=== PATIENT | female | born 1955 | race Caucasian/White ===

== ENCOUNTER 2022-10-25 05:28 | Emergency (ER) | payer MEDICARE, MEDICAID, SELFPAY ==
[2022-10-25 05:31] VITALS: BP 158/86; PULSE 74; RESP 17; TEMP 36.6; O2SAT 95; BMI 31.9
--- NOTE | 2022-10-25 05:32 | XRR_ITS ---
PROCEDURE INFORMATION: Exam: XR Chest Exam date and time: 10/25/2022 5:36 AM Age: 66 years old Clinical indication: Dyspnea. Altered mental status. TECHNIQUE: Imaging protocol: Radiologic exam of the chest. Views: 1 view. COMPARISON: No relevant prior studies available. FINDINGS: Lungs: There is mild peribronchial wall thickening. No pulmonary consolidation. Pleural spaces: No pleural effusion. No pneumothorax. Heart/Mediastinum: The heart appears enlarged; this may be exaggerated by AP technique. No gross evidence of pneumomediastinum. Bones/joints: No gross fracture. XR/XR chest 1V portable [id number] IMPRESSION: 1. Mild peribronchial wall thickening; query viral infection/bronchitis, chronic bronchitis and/or asthma. 2. The heart appears enlarged; this may be exaggerated by AP technique.
--- NOTE | 2022-10-25 05:32 | CTR_ITS ---
PROCEDURE INFORMATION: Exam: CT Cervical Spine Without Contrast Exam date and time: 10/25/2022 6:22 AM Age: 66 years old Clinical indication: Injury or trauma; Blunt trauma; Prior surgery; Surgery type: Cervical fusion; Patient HX: From halfway for fall with AMS. Patient unresponsive. Unable to obtain further history. TECHNIQUE: Imaging protocol: Computed tomography of the cervical spine without contrast. Radiation optimization: All CT scans at this facility use at least one of these dose optimization techniques: automated exposure control; mA and/or kV adjustment per patient size (includes targeted exams where dose is matched to clinical indication); or iterative reconstruction. COMPARISON: CT head wo con* [id number] 10/25/2022 6:19 AM RADIATION DOSE METRICS: Total DLP (mGy-cm): 192.87 FINDINGS: Bones/joints: No acute fracture or malalignment. Postsurgical changes of prior ACDF with anterior plate and screw fixation spanning C5 through C7. Hardware appears intact. Uncovertebral spurring and facet hypertrophy contribute to moderate neural foraminal stenosis at C4-C5 on the left. Lungs: Lung apices are normal. Thyroid: There is a peripherally calcified right thyroid nodule measuring 1.5 cm. Soft tissues: Unremarkable. CT/CT cervical spin wo con* [id number] IMPRESSION: 1. No acute fracture or malalignment. 2. There is a peripherally calcified right thyroid nodule measuring 1.5 cm. Follow-up non-emergent thyroid ultrasound is recommended. COMMENTS: Consistent with the [employer]'s Incidental Findings Committee white paper (J Am Linh Radiol 2015): In patients aged 35 years and older with an incidental thyroid nodule equal to or greater than 1.[address], MRI or extrathyroidal US, further evaluation with dedicated thyroid US is recommended for patients with normal life expectancy and without comorbidities. For smaller nodules without suspicious features, no further evaluation or follow up is recommended.
--- NOTE | 2022-10-25 05:32 | CTR_ITS ---
PROCEDURE INFORMATION: Exam: CT Head Without Contrast Exam date and time: 10/25/2022 6:19 AM Age: 66 years old Clinical indication: Injury or trauma; Blunt trauma (contusions or hematomas); Altered mental status/memory loss; Confusion or disorientation; Patient HX: From half-way for fall with AMS. Patient unresponsive. Unable to obtain further history. TECHNIQUE: Imaging protocol: Computed tomography of the head without contrast. Radiation optimization: All CT scans at this facility use at least one of these dose optimization techniques: automated exposure control; mA and/or kV adjustment per patient size (includes targeted exams where dose is matched to clinical indication); or iterative reconstruction. COMPARISON: No relevant prior studies available. RADIATION DOSE METRICS: Total DLP (mGy-cm): 1097.48 FINDINGS: Brain: Patchy hypoattenuation in the periventricular and subcortical white matter, consistent with chronic small vessel ischemia. No CT evidence of acute ischemia. No acute hemorrhage. No mass effect. Cerebral ventricles: Global cerebral volume loss with ex vacuo dilatation of the ventricles. Paranasal sinuses: Visualized sinuses are unremarkable. No fluid levels. Mastoid air cells: Visualized mastoid air cells are well aerated. Bones/joints: Unremarkable. No acute fracture. Soft tissues: Unremarkable. CT/CT head wo con* [id number] IMPRESSION: No acute intracranial abnormality.
--- NOTE | 2022-10-25 05:38 | ED_ITS ---
Documented by User: Jason De La Cruz MD 10/25/22 05:41 HPI - General Adult General: Chief complaint: Altered Mental Status Stated complaint: FALL Time Seen by Provider: 10/25/22 05:29 Source: EMS Mode of arrival: EMS Limitations: altered mental status History of Present Illness: 66-year-old female is here for unresponsiveness per EMS correction and found her in the floor unsure if she had had a fall he states that she has not been eating or drinking has been saying that she just wants to patient is on the Alzheimer payan there. Patient here is opening her eyes but will not respond she is not answering any questions vitals are normal Review of Systems General: Reports: ROS unobtainable due to mental status PFSH ED PFSH: Medical History (Updated 10/25/22 @ 10:00 by Dax Melendrez DO) Diabetes Social History (Updated 10/25/22 @ 05:39 by Jason De La Cruz MD) Substance/Drug Use: never Physical Exam Const: COMMON NORMALS: negative for patient oriented x3 EXAM LIMITATIONS: altered mental status HENMT: COMMON NORMALS: normocephalic and atraumatic HEAD & SCALP: normocephalic and atraumatic Eye: COMMON NORMALS: Equal, round and reactive pupils present and conjunctivae normal CONJUNCTIVA: Yes conjunctivae normal PUPIL: Yes Equal, round and reactive pupils present Neck/C-Spine: COMMON NORMALS: full ROM and supple Chest: COMMONS NORMALS: normal inspection of the chest and normal palpation of entire chest wall Resp: COMMON NORMALS: normal respiratory effort and clear to auscultation bilaterally AUSCULTATION: clear to auscultation bilaterally Cardio: COMMON NORMALS: regular rate and regular rhythm RATE: regular rate RHYTHM: regular rhythm GI: COMMON NORMALS: Normal to inspection, nondistended, normoactive bowel sounds present, Soft to palpation and non-tender PALPATION: Yes Soft to palpation Extremity: COMMON NORMALS: normal to inspection Neuro: COMMON NORMALS: negative for patient oriented x3 OTHER: Patient would not respond to verbal stimuli but did respond to painful stimuli and moved her extremities Psych: COMMON NORMALS: negative for mental status grossly normal Skin: COMMON NORMALS: no rashes or lesions noted GENERAL SKIN EXAM: no rashes or lesions noted Course Vital Signs: Vital signs: Vital Signs Temperature 97.9 F 10/25/22 05:31 Pulse Rate 75 10/25/22 07:28 Respiratory Rate 16 10/25/22 07:28 Blood Pressure 145/71 10/25/22 07:28 Pulse Oximetry 100 10/25/22 07:28 Oxygen Delivery Me thod 10/25/22 06:15 MDM - General Adult Lab Data 10/25/22 05:41 10/25/22 05:41 Radiology Impressions Cervical Spine CT 10/25/22 05:32 IMPRESSION: 1. No acute fracture or malalignment. 2. There is a peripherally calcified right thyroid nodule measuring 1.5 cm. Follow-up non-emergent thyroid ultrasound is recommended. COMMENTS: Consistent with the [employer]'s Incidental Findings Committee white paper (J Am Linh Radiol 2015): In patients aged 35 years and older with an incidental thyroid nodule equal to or greater than 1.[address], MRI or extrathyroidal US, further evaluation with dedicated thyroid US is recommended for patients with normal life expectancy and without comorbidities. For smaller nodules without suspicious features, no further evaluation or follow up is recommended. Chest X-Ray 10/25/22 05:32 IMPRESSION: 1. Mild peribronchial wall thickening; query viral infection/bronchitis, chronic bronchitis and/or asthma. 2. The heart appears enlarged; this may be exaggerated by AP technique. Head CT 10/25/22 05:32 IMPRESSION: No acute intracranial abnormality. Laboratory Results WBC 4.0 10^3/uL (4.0-10.0) 10/25/22 05:41 RBC 4.98 10^6/uL (4.1-5.3) 10/25/22 05:41 Hgb 14.5 g/dL (11.5-15.3) 10/25/22 05:41 Hct 46.0 % (37.0-47.0) 10/25/22 05:41 MCV 92.4 fl (81-99) 10/25/22 05:41 MCH 29.1 pg (28.0-34.0) 10/25/22 05:41 MCHC 31.5 g/dL (30.0-36.0) 10/25/22 05:41 RDW 15.6 % (12.1-15.1) H 10/25/22 05:41 Plt Count 174 10^3/cmm (130-400) 10/25/22 05:41 MPV 9.3 fL (7.4-10.4) 10/25/22 05:41 Neut % (Auto) 30.9 % 10/25/22 05:41 Lymph % (Auto) 45.8 % 10/25/22 05:41 [place] % (Auto) 7.1 % 10/25/22 05:41 Eos % (Auto) 14.1 % 10/25/22 05:41 Baso % (Auto) 0.8 % 10/25/22 05:41 Neut # (Auto) 1.23 10^3/uL (1.8-7.7) L 10/25/22 05:41 Lymph # (Auto) 1.8 10^3/uL (0.8-4.8) 10/25/22 05:41 [place] # (Auto) 0.3 10^3/uL (0.2-0.9) 10/25/22 05:41 Eos # (Auto) 0.6 10^3/uL (0.0-0.8) 10/25/22 05:41 Baso # (Auto) 0.0 10^3/uL (0.0-0.1) 10/25/22 05:41 Nucleated RBC % (auto) 0 % 10/25/22 05:41 Nucleated RBCs # 0.0 /100WBC 10/25/22 05:41 Sodium 137 mmol/L (136-145) 10/25/22 05:41 Potassium 3.9 mmol/L (3.5-5.1) 10/25/22 05:41 Chloride 93 mmol/L (98-107) L 10/25/22 05:41 Carbon Dioxide 28 mmol/L (22-29) 10/25/22 05:41 Anion Gap 19.9 (5-19) H 10/25/22 05:41 BUN 5 mg/dL (8-23) L 10/25/22 05:41 Creatinine 0.6 mg/dL (0.5-0.9) 10/25/22 05:41 GFR Calculation 100.3 mL/min (90-130) 10/25/22 05:41 Glucose 70 mg/dL (65-115) 10/25/22 05:41 POC Glucose 62 mg/dL (70-110) L 10/25/22 05:47 Calculated Osmolality 280 mOsm/kg (285-295) L 10/25/22 05:41 Calcium 10.1 mg/dL (8.5-10.5) 10/25/22 05:41 Total Bilirubin 0.2 mg/dL (0.15-1.2) 10/25/22 05:41 AST 21 U/L (0-32) 10/25/22 05:41 ALT 14 U/L (0-33) 10/25/22 05:41 Alkaline Phosphatase 86 U/L (35-105) 10/25/22 05:41 Ammonia 16 umol/L (11-51) 10/25/22 08:05 Total Protein 7.1 g/dL (6.6-8.7) 10/25/22 05:41 Albumin 3.9 g/dL (3.5-5.2) 10/25/22 05:41 Globulin 3.2 g/dL (1.3-4.6) 10/25/22 05:41 Urine Color Yellow (Yellow) 10/25/22 06:10 Urine Appearance Clear (CLEAR) 10/25/22 06:10 Urine pH 6.5 (5-7) 10/25/22 06:10 Ur Specific [place] 1.005 (1.005-1.030) 10/25/22 06:10 Urine Protein Neg (Negative) 10/25/22 06:10 Urine Glucose (UA) Norm (Normal) 10/25/22 06:10 Urine Ketones 1+ (Negative) H 10/25/22 06:10 Urine Blood 2+ (Negative) H 10/25/22 06:10 Urine Nitrate Negative (Negative) 10/25/22 06:10 Urine Bilirubin Neg (Negative) 10/25/22 06:10 Urine Urobilinogen Norm mg/dL (Negative) 10/25/22 06:10 Ur Leukocyte Esterase Negative (Negative) 10/25/22 06:10 Urine RBC 0-4 /hpf (0-2) H 10/25/22 06:10 Urine WBC Rare /hpf (0-5) 10/25/22 06:10 Ur Squamous Epith Cells 15-25 /hpf (0-5) H 10/25/22 06:10 Amorphous Sediment Not Reportable 10/25/22 06:10 Urine Bacteria Trace /hpf (NONE) 10/25/22 06:10 Valproic Acid 56.7 ug/mL (50-100) 10/25/22 05:41 Discharge Plan Discharge Patient Disposition: Home Clinical Impression: Fall, Dementia Discharge Orders: Discharge ED (Routine); Ordered 10/25/22 Ordered By: Dax Melendrez Patient Instructions: Opioid Safety, Pain Management Sign Out Sign Out Data: Patient Sign Out occurred on 10/25/22 at 06:59. Patient's care was discussed, and care was transferred from to Dax Melendrez DO. Coding Level of Care Code ED Home Energy Inspector for Chg Fwd Exam Comprehensive Documented by User: Dax Melendrez DO 10/25/22 10:00 HPI - General Adult General: Chief complaint: Altered Mental Status Stated complaint: FALL Time Seen by Provider: 10/25/22 05:29 PFSH ED PFSH: Medical History (Updated 10/25/22 @ 10:00 by Dax Melendrez DO) Diabetes Social History (Updated 10/25/22 @ 05:39 by Jason De La Cruz MD) Substance/Drug Use: never Course Vital Signs: Vital signs: Vital Signs Temperature 97.9 F 10/25/22 05:31 Pulse Rate 75 10/25/22 07:28 Respiratory Rate 16 10/25/22 07:28 Blood Pressure 145/71 10/25/22 07:28 Pulse Oximetry 100 10/25/22 07:28 Oxygen Delivery Me thod 10/25/22 06:15 MDM - General Adult Medical Decision Making Care required at change of shift. Labs and imaging unremarkable. Patient discharged back to the correction for routine cares. Medical Records I reviewed the patient's medical records. Lab Data I reviewed the patient's lab results. 10/25/22 05:41 10/25/22 05:41 Radiology Impressions Cervical Spine CT 10/25/22 05:32 IMPRESSION: 1. No acute fracture or malalignment. 2. There is a peripherally calcified right thyroid nodule measuring 1.5 cm. Follow-up non-emergent thyroid ultrasound is recommended. COMMENTS: Consistent with the [employer]'s Incidental Findings Committee white paper (J Am Linh Radiol 2015): In patients aged 35 years and older with an incidental thyroid nodule equal to or greater than 1.[address], MRI or extrathyroidal US, further evaluation with dedicated thyroid US is recommended for patients with normal life expectancy and without comorbidities. For smaller nodules without suspicious features, no further evaluation or follow up is recommended. Chest X-Ray 10/25/22 05:32 IMPRESSION: 1. Mild peribronchial wall thickening; query viral infection/bronchitis, chronic bronchitis and/or asthma. 2. The heart appears enlarged; this may be exaggerated by AP technique. Head CT 10/25/22 05:32
--- NOTE | 2022-10-25 05:41 | ECG_ITS ---
[facility] Test Date: 2022-10-25 Pat Name: Odalys Tipton Department: Room: Gender: Female Biomedical Manager: : [id number] Requested By: Jason De La Cruz Order Number: [id number] Reading MD: Baldemar Sauer Measurements Intervals [place] Rate: 103 P: 77 GA: 152 QRS: -43 QRSD: 97 T: 88 QT: 349 QTc: 458 Interpretive Statements SINUS TACHYCARDIA LEFT AXIS DEVIATION [QRS AXIS < -30] No previous ECG available for comparison Electronically Signed On 10-26-2022 15:33:36 FUSING MACHINE TENDER by Baldemar Sauer [email or web address]
[2022-10-25 05:51] LABS: Basophils % 0.8 %; Eosinophils # 0.6 10^3/uL (0.0-0.8); Eosinophils % 14.1 %; Hemoglobin 14.5 g/dL (11.5-15.3); Lymphocytes # 1.8 10^3/uL (0.8-4.8); Lymphocytes % 45.8 %; Mean Corpuscular HGB Conc 31.5 g/dL (30.0-36.0); Mean Corpuscular Hemoglobin 29.1 pg (28.0-34.0); Mean Corpuscular Volume 92.4 fl (81-99); Mean Platelet Volume 9.3 fL (7.4-10.4); Monocytes # 0.3 10^3/uL (0.2-0.9); Monocytes % 7.1 %; Neutrophils # 1.23 10^3/uL (1.8-7.7); Neutrophils % 30.9 %; Nucleated Red Blood Cells % 0 %; Platelet Count 174 10^3/cmm (130-400); Red Blood Count 4.98 10^6/uL (4.1-5.3); Red Cell Distribution Width 15.6 % (12.1-15.1)
[2022-10-25 05:51] LABS: Glucose Point of Care 62 mg/dL (70-110)
[2022-10-25 06:15] VITALS: BP 145/71; PULSE 72; RESP 16; O2SAT 96
[2022-10-25 06:15] LABS: Valproic Acid Level 56.7 ug/mL (50-100)
[2022-10-25 06:16] LABS: Alanine Aminotransferase 14 U/L (0-33); Albumin Level 3.9 g/dL (3.5-5.2); Alkaline Phosphatase 86 U/L (35-105); Anion Gap 19.9 (5-19); Aspartate Amino Transferase 21 U/L (0-32); Blood Urea Nitrogen 5 mg/dL (8-23); Calcium 10.1 mg/dL (8.5-10.5); Carbon Dioxide 28 mmol/L (22-29); Chloride 93 mmol/L (98-107); Creatinine Clr Calc Pharmacy 84.6033; Globulin 3.2 g/dL (1.3-4.6); Glomerular Filtration Rate 100.3 mL/min (90-130); Glucose 70 mg/dL (65-115); Osmolality Calculated 280 mOsm/kg (285-295); Potassium 3.9 mmol/L (3.5-5.1); Sodium 137 mmol/L (136-145); Total Bilirubin 0.2 mg/dL (0.15-1.2); Total Protein 7.1 g/dL (6.6-8.7)
[2022-10-25 06:35] LABS: Add Urine Microscopic? YES; Bilirubin Urine Neg (Negative); Blood Urine 2+ (Negative); Glucose Urine UA Norm (Normal); Ketones Urine 1+ (Negative); Leukocyte Esterase Urine Negative (Negative); Nitrate Urine Negative (Negative); Protein Urine Neg (Negative); Specific Gravity, Urine 1.005 (1.005-1.030); Urine Appearance Clear (CLEAR); Urine Color Yellow (Yellow); Urobilinogen Urine Norm (Negative); pH Urine 6.5 (5-7)
[2022-10-25 06:38] LABS: Bacteria Urine TRACE /hpf; RBC Urine 0-4 /hpf (0-2); Squamous Epithelial Cell Urine 15-25 /hpf (0-5); WBC Urine RARE /hpf (0-5)
[2022-10-25 06:39] LABS: Add Urine Culture? No
[2022-10-25] MEDS: dextrose 10% 1,000 ML 75 ML IV (07:20)
[2022-10-25 07:28] VITALS: BP 145/71; PULSE 75; RESP 16; O2SAT 100
[2022-10-25] MEDS: acetaminophen 500 mg Tablet 1000 MG PO (07:53)
[2022-10-25] MEDS: gabapentin 300 mg Capsule PO (07:54)
[2022-10-25 08:29] LABS: Ammonia 16 umol/L (11-51)
[2022-10-25 09:56] VITALS: BP 122/54; PULSE 75; RESP 16; O2SAT 98
[2022-10-25 11:37] VITALS: BP 126/71; PULSE 78; RESP 16; O2SAT 95
[2022-10-25 11:43] VITALS: BP 126/71; PULSE 78; RESP 16; TEMP 36.6; O2SAT 95
== END 2022-10-25 11:47 | disposition home or self-care (01) ==
PROVIDERS: Emergency Medicine; Emergency Provider Family Medicine
DX: F03.90 Unspecified dementia, unspecified severity, without behavioral disturbance, psychotic disturbance, mood disturbance, and anxiety (principal); E11.9 Type 2 diabetes mellitus without complications; W19.XXXA Unspecified fall, initial encounter; Y92.129 Unspecified place in nursing home as the place of occurrence of the external cause
CPT/HCPCS: 36416; 70450; 71045; 72125; 80053; 80164; 81001; 82140; 82962; 85025; 93005; 99285

== ENCOUNTER → 2023-12-07 14:04 | Outpatient (BNVA) | payer MEDICARE, MEDICAID, SELFPAY | PROVIDERS: Visit Provider Nurse Practitioner Women's Health | DX: R10.2 Pelvic and perineal pain (principal); R82.90 Unspecified abnormal findings in urine | CPT/HCPCS: 81000; 87086 ==

== ENCOUNTER → 2023-12-23 14:16 | Outpatient (BNVA) | payer MEDICARE, MEDICAID, SELFPAY | PROVIDERS: Visit Provider Nurse Practitioner Women's Health | DX: N30.01 Acute cystitis with hematuria (principal) | CPT/HCPCS: 84315; 87086 ==

== ENCOUNTER 2023-12-27 10:49 | Emergency (ER) | payer MEDICARE, MEDICAID, SELFPAY ==
[2023-12-27] VITALS (54 sets, daily range): BP systolic 152–182; BP diastolic 77–107; PULSE 70; TEMP 36.5; O2SAT 90–96
--- NOTE | 2023-12-27 10:53 | CTR_ITS ---
PROCEDURE INFORMATION: Exam: CT Head Without Contrast Exam date and time: 12/27/2023 11:17 AM Age: 68 years old Clinical indication: Altered mental status/memory loss; Additional info: Encephalopathy, altered mental status TECHNIQUE: Imaging protocol: Computed tomography of the head without contrast. Radiation optimization: All CT scans at this facility use at least one of these dose optimization techniques: automated exposure control; mA and/or kV adjustment per patient size (includes targeted exams where dose is matched to clinical indication); or iterative reconstruction. COMPARISON: CT head wo con* [id number] 10/25/2022 6:19 AM RADIATION DOSE METRICS: Total DLP (mGy-cm): 1250.48 FINDINGS: Brain: There are periventricular white matter and bilateral centrum semiovale hypodensities consistent with chronic ischemic small vessel disease. No intracranial bleed. No large territorial infarct. Cerebral ventricles: No ventriculomegaly. Pituitary gland and sella: There is a partially empty sella. Paranasal sinuses: Post bilateral maxillary antrectomies. There is complete opacification of the right maxillary sinus with frothy secretions in the right nasal cavity. Mastoid air cells: Visualized mastoid air cells are well aerated. Bones/joints: Unremarkable. No acute fracture. Soft tissues: Unremarkable. Vasculature: There are tiny vascular calcifications involving bilateral ICAs and left vertebral artery. CT/CT head wo con* [id number] IMPRESSION: 1. No large territorial infarct or intracranial bleed. 2. Findings suggestive of acute right maxillary sinusitis.
--- NOTE | 2023-12-27 10:54 | XRR_ITS ---
PROCEDURE INFORMATION: Exam: XR Chest Exam date and time: 12/27/2023 11:17 AM Age: 68 years old Clinical indication: Shortness of breath TECHNIQUE: Imaging protocol: Radiologic exam of the chest. Views: 1 view. COMPARISON: CR XR chest 1V portable [id number] 10/25/2022 5:36 AM FINDINGS: Lungs: No gross consolidation. Pleural spaces: No gross pleural effusion. No pneumothorax. Heart/Mediastinum: Unremarkable. No cardiomegaly. Bones/joints: Chronic fracture deformity of the right proximal humerus. Other findings: Rotated chest radiograph. XR/XR chest 1V [id number] IMPRESSION: Rotated radiograph. No gross consolidations.
[2023-12-27 11:08] LABS: ABG PCO2 46.1 mmHg (35-45); ABG PH Result 7.39 (7.35-7.45); Alveolar-Arterial Oxygen Gradi 3.5 mmHg (5-10); Arterial Blood Gas Hematocrit 38.9 % (37-47); Base Excess ABG 2.3 mmol/L (-2.0-2.0); Blood Gas Allen Test Pos; Blood Gas Operator Identificat WALCI; Blood Gas Sample Site Radial, left; Blood Gas Sample Type Arterial; Carboxyhemoglobin 1.2 %THgb (0.4-20.1); HCO3 ABG 27.8 mmol/L (22-26); HGB O2 Sat 89.9 % (95-100); Ionized Calcium Level - ABG 1.3 mmol/L (1.1-1.4); Methemoglobin 1.2 % (0.4-1.5); Oxygen Device ROOM AIR; Oxygen Saturation ABG 92.2; PO2 ABG 66.3 mmHg (80.0-100.0); PO2 FiO2 Ratio Arterial Blood 0; Potassium Level - ABG 3.8 mmol/L (3.5-5.0); Total Hemoglobin 12.7 g/dL (12-16)
[2023-12-27 11:23] LABS: Basophils # 0.1 10^3/uL (0.0-0.1); Basophils % 0.9 %; Eosinophils # 0.1 10^3/uL (0.0-0.8); Eosinophils % 1.5 %; Lymphocytes # 1.4 10^3/uL (0.8-4.8); Lymphocytes % 24.4 %; Mean Corpuscular HGB Conc 31.1 g/dL (30-55); Mean Corpuscular Hemoglobin 29.9 pg (27-33); Mean Corpuscular Volume 96.2 fl (85-98); Mean Platelet Volume 8.9 fL (7.4-10.4); Monocytes # 0.3 10^3/uL (0.2-0.9); Monocytes % 4.6 %; Neutrophils # 3.98 10^3/uL (1.8-7.7); Neutrophils % 68.4 %; Nucleated Red Blood Cells % 0 %; Platelet Count 231 10^3/cmm (157-399); Red Blood Count 4.68 10^6/uL (3.85-5.65); Red Cell Distribution Width 12.9 % (12.1-15.1); White Blood Count 5.82 10^3/uL (3.29-11.43)
--- NOTE | 2023-12-27 11:31 | ED_ITS ---
HPI - Altered Mental Status 2 General: Chief Complaint: Altered Mental Status Stated Complaint: UNRESPONSIVE TO STAFF Time Seen by Provider: 12/27/23 10:51 History of Present Illness: Patient arrives from the [facility]. She is on a behavioral lockdown unit. Per [facility] reported that she had gone to breakfast and was sitting there and was unresponsive. She did not fall over but she would not wake up. She will arouse somewhat to sternal rub. They put a nasal trumpet in she did not resist much. She does not appear to have any focal motor deficits. No other history able to be obtained. As far as they know she has not had any vomiting. No fevers. No known cough. Review of Systems 2 Narrative: Unable to obtain secondary to dementia and altered mental status. PFSH ED 2 PFSH: Medical History (Updated 12/27/23 @ 15:35 by Ana María Marion MD) Diabetes Family History (Updated 12/07/23 @ 13:59 by Ting Polo) Mother Colon cancer Father Heart disease Diabetes Grandfather Heart disease Social History (Updated 10/25/22 @ 05:39 by Jason De La Cruz MD) Substance/Drug Use: never Physical Exam 2 Narrative: General: responds minimally to painful stimuli. Skin: Warm, dry Head: Normocephalic, atraumatic. Neck: Supple, trachea midline. Eye: Extraocular movements are intact. Ears, nose, mouth and throat: Dry oral mucosa. Cardiovascular: Regular rate and rhythm, Normal peripheral perfusion. Respiratory: Lungs are clear to auscultation, respirations are non-labored, breath sounds are equal, Symmetrical chest wall expansion. Gastrointestinal: Soft, Nontender, Non distended, Normal bowel sounds. Musculoskeletal: no deformity. Neurological: Not Alert and oriented to person, place, time, and situation, No obvious focal neurological deficit observed. Psychiatric: unable to assess. Course 2 Vital Signs: Vital signs: Vital Signs Temperature 97.7 F 12/27/23 10:54 Pulse Rate 70 12/27/23 10:54 Blood Pressure 179/86 12/27/23 14:45 Pulse Oximetry 95 12/27/23 14:50 Oxygen Delivery Me thod Room Air 12/27/23 10:54 MDM - Altered Mental Status Medical Decision Making Medical decision making: Differential diagnosis including but not limited to and based on the above HPI, review of systems and physical exam: Concern for stroke, intracranial hemorrhage, infection such as UTI, pneumonia, sepsis, flu or COVID. Concern for electrolyte abnormalities or renal failure. Concern for respiratory failure hypercapnic respiratory failure. Head CT, ABG, chest x-ray, basic lab work, UA were all ordered. Lab Review: Laboratory results were reviewed and interpreted by myself the emergency room physician. Lab work is fairly unremarkable. No leukocytosis. No anemia. No renal failure. She does have evidence of a urinary tract infection on her urinalysis. CT head: No acute intracranial process. no intracranial hemorrhage, no evidence of infarct. no evidence of acute fracture.This was reviewed and interpreted by myself the ER physician. Chest x-ray: No acute process. No infiltrate. No pneumothorax. Slightly increased cardiomegaly. This was reviewed and interpreted by myself the ER physician. EK:13 PM rate 65 normal sinus rhythm, No ST-T changes, no ectopy, normal CA & QRS intervals, This was reviewed and interpreted by myself the ER physician at 12:[address] of the abdomen pelvis with contrast: The only acute process on CT scan appears to be some cystitis. This is evidenced in lab as well. No other acute process. I reviewed and interpreted these films personally. I also reviewed the radiology report. Reexamination: Patient is a bit more interactive at this time. She still will not speak. He has no focal motor deficits. No increased work of breathing. This is partially behavioral and may be partially related to her urinary tract infection. Either way I think she safe to go back to the [facility] Lab Data 12/27/23 11:12 12/27/23 11:[address] 12/27/23 10:53 IMPRESSION: 1. No large territorial infarct or intracranial bleed. 2. Findings suggestive of acute right maxillary sinusitis. Chest X-Ray 12/27/23 10:54 IMPRESSION: Rotated radiograph. No gross consolidations. Abdomen/Pelvis CT 12/27/23 13:40 IMPRESSION: 1. Suspected cystitis. There is very mild patchy hypoenhancement of the left lower pole, possibly artifactual though raising the question of early pyelonephritis in the proper clinical setting. Correlation with urinalysis and laboratory findings is recommended. Laboratory Results WBC 5.82 10^3/uL (3.29-11.43) 12/27/23 11:12 RBC 4.68 10^6/uL (3.85-5.65) 12/27/23 11:12 Hgb 14.00 g/dL (11.27-16.99) 12/27/23 11:12 Hct 45.0 % (36-47) 12/27/23 11:12 MCV 96.2 fl (85-98) 12/27/23 11:12 MCH 29.9 pg (27-33) 12/27/23 11:12 MCHC 31.1 g/dL (30-55) 12/27/23 11:12 RDW 12.9 % (12.1-15.1) 12/27/23 11:12 Plt Count 231 10^3/cmm (157-399) 12/27/23 11:12 MPV 8.9 fL (7.4-10.4) 12/27/23 11:12 Neut % (Auto) 68.4 % 12/27/23 11:12 Lymph % (Auto) 24.4 % 12/27/23 11:12 [place] % (Auto) 4.6 % 12/27/23 11:12 Eos % (Auto) 1.5 % 12/27/23 11:12 Baso % (Auto) 0.9 % 12/27/23 11:12 Neut # (Auto) 3.98 10^3/uL (1.8-7.7) 12/27/23 11:12 Lymph # (Auto) 1.4 10^3/uL (0.8-4.8) 12/27/23 11:12 [place] # (Auto) 0.3 10^3/uL (0.2-0.9) 12/27/23 11:12 Eos # (Auto) 0.1 10^3/uL (0.0-0.8) 12/27/23 11:12 Baso # (Auto) 0.1 10^3/uL (0.0-0.1) 12/27/23 11:12 Nucleated RBC % (auto) 0 % 12/27/23 11:12 Nucleated RBCs # 0.0 /100WBC 12/27/23 11:12 Specimen Type Arterial 12/27/23 10:57 Sample Site Radial, left 12/27/23 10:57 ABG pH 7.39 (7.35-7.45) 12/27/23 10:57 ABG pCO2 46.1 mmHg (35-45) H 12/27/23 10:57 ABG pO2 66.3 mmHg (80.0-100.0) L 12/27/23 10:57 ABG PO2/FiO2 Ratio 0 12/27/23 10:57 ABG HCO3 27.8 mmol/L (22-26) H 12/27/23 10:57 ABG O2 Saturation 92.2 12/27/23 10:57 ABG Base Excess 2.3 mmol/L (-2.0-2.0) H 12/27/23 10:57 Leon Test Pos 12/27/23 10:57 A-a O2 Gradient 3.5 mmHg (5-10) L 12/27/23 10:57 Hematocrit 38.9 % (37-47) 12/27/23 10:57 Hgb O2 Saturation 89.9 % (95-100) L 12/27/23 10:57 Carboxyhemoglobin 1.2 %THgb (0.4-20.1) 12/27/23 10:57 Methemoglobin 1.2 % (0.4-1.5) 12/27/23 10:57 Total Hemoglobin 12.7 g/dL (12-16) 12/27/23 10:57 Sodium 142.0 mmol/L (131-143) 12/27/23 10:57 Potassium 3.8 mmol/L (3.5-5.0) 12/27/23 10:57 Glucose 108.0 mg/dL (70-115) 12/27/23 10:57 Ionized Calcium 1.3 mmol/L (1.1-1.4) 12/27/23 10:57 O2 Delivery Device Room air 12/27/23 10:57 FiO2 21.0 % 12/27/23 10:57 Media Job Titles ID [facility] 12/27/23 10:57 Sodium 137 mmol/L (136-145) 12/27/23 11:12 Potassium 4.4 mmol/L (3.5-5.1) 12/27/23 11:12 Chloride 102 mmol/L (98-107) 12/27/23 11:12 Carbon Dioxide 25 mmol/L (22-29) 12/27/23 11:12 Anion Gap 14.4 (5-19) 12/27/23 11:12 BUN 12 mg/dL (8-23) 12/27/23 11:12 Creatinine 0.7 mg/dL (0.5-0.9) 12/27/23 11:12 GFR Calculation 83.5 mL/min (90-130) L 12/27/23 11:12 Glucose 105 mg/dL (65-115) 12/27/23 11:12 Calculated Osmolality 284 mOsm/kg (285-295) L 12/27/23 11:12 Lactic Acid 0.9 mmol/L (0.5-2.2) 12/27/23 11:12 Calcium 9.6 mg/dL (8.5-10.5) 12/27/23 11:12 Total Bilirubin 0.5 mg/dL (0.15-1.2) 12/27/23 11:12 AST 20 U/L (0-32) 12/27/23 11:12 ALT 23 U/L (0-33) 12/27/23 11:12 Alkaline Phosphatase 93 U/L (35-105) 12/27/23 11:12 Troponin T Baseline 7 ng/L (0-10) 12/27/23 11:12 C-Reactive Protein 8.7 mg/L (0.0-4.9) H 12/27/23 11:12 Total Protein 6.9 g/dL (6.6-8.7) 12/27/23 11:12 Albumin 4.2 g/dL (3.5-5.2) 12/27/23 11:12 Globulin 2.7 g/dL (1.3-4.6) 12/27/23 11:12 Urine Color Yellow (Yellow) 12/27/23 12:20 Urine Appearance Clear (CLEAR) 12/27/23 12:20 Urine pH 6.5 (5-7) 12/27/23 12:20 Ur Specific [place] 1.010 (1.005-1.030) 12/27/23 12:20 Urine Protein 1+ (Negative) H 12/27/23 12:20 Urine Glucose (UA) Norm (Normal) 12/27/23 12:20 Urine Ketones 1+ (Negative) H 12/27/23 12:20 Urine Blood Neg (Negative) 12/27/23 12:20 Urine Nitrate Positive (Negative) H 12/27/23 12:20 Urine Bilirubin 1+ (Negative) H 12/27/23 12:20 Urine Urobilinogen 1 mg/dL (Negative) H 12/27/23 12:20 Ur Leukocyte Esterase Negative (Negative) 12/27/23 12:20 Urine RBC None /hpf (0-2) 12/27/23 12:20 Urine WBC 0-4 /hpf (0-5) H 12/27/23 12:20 Ur Squamous Epith Cells Rare /hpf (0-5) 12/27/23 12:20 Amorphous Sediment Not Reportable 12/27/23 12:20 Urine Bacteria Trace /hpf (NONE) 12/27/23 12:20 Urine Opiates Screen Negative ng/mL (Negative) 12/27/23 12:20 Acetaminophen < 5.0 ug/mL (10-30) L 12/27/23 11:12 Ur Barbiturates Screen Positive ng/mL (Negative) H 12/27/23 12:20 Ur Phencyclidine Scrn Negative ng/mL (Negative) 12/27/23 12:20 Ur Amphetamines Screen Negative ng/mL (Negative) 12/27/23 12:20 U Benzodiazepines Scrn Negative ng/mL (Negative) 12/27/23 12:20 Urine Cocaine Screen Negative ng/mL (Negative) 12/27/23 12:20 U Marijuana (THC) Screen Negative ng/mL (Negative) 12/27/23 12:20 Ethyl Alcohol < 10 mg/dL (0-10) 12/27/23 11:12 Influenza Type A Ag negative (Negative) 12/27/23 11:50 Influenza Type B Ag negative (Negative) 12/27/23 11:50 SARS-CoV-2 Ag (Rapid) negative (Negative) 12/27/23 11:50 All radiology interpretation(s) finalized by discharge Other Data - IV Rocephin in the emergency room. -1 L normal saline bolus in the emergency room. - Discharged home - Evaluation and treatment of this problem were appropriate in the emergency setting. Discharge Plan Discharge Patient Disposition: Home Clinical Impression: Urinary tract infection, Dementia, Dehydration Condition: Stable Prescriptions: New cefdinir 300 mg capsule 300 mg PO BID 10 Days Qty: 20 0RF No Action acetaminophen 650 mg tablet extended release 650 mg PO Q8H acetaminophen 325 mg capsule 650 mg PO Q6H PRN (Reason: Pain) menthol [Blue Gel] 2 % gel 1 applic topical DAILY PRN (Reason: Pain) tolterodine [Detrol LA] 4 mg capsule,extended release 24hr 4 mg PO DAILY docusate sodium 100 mg capsule 100 mg PO DAILY gabapentin 600 mg tablet 600 mg PO TID levothyroxine 50 mcg capsule 50 mcg PO DAILY magnesium hydroxide 400 mg/5 mL suspension 30 ml PO DAILY PRN (Reason: CONSTIPATON) montelukast 10 mg tablet 10 mg PO DAILY naloxone 2 mg/2 mL syringe kit 2 mg IM Q2M PRN (Reason: OPIATE OVERDOSE) Rx Instructions: NTExceed 10 mg total dose/episode pantoprazole 40 mg tablet,delayed release (DR/EC) 40 mg PO DAILY phenazopyridine 95 mg tablet 95 mg PO TID PRN (Reason: UTI) DHA 200 mg capsule 200 mg PO DAILY primidone 50 mg tablet 50 mg PO BEDTIME senna 8.6 mg capsule 8.6 mg PO BID sodium chloride 1,000 mg tablet,soluble 1,000 mg PO DAILY trazodone 100 mg tablet 100 mg PO DAILY All Day Allergy (cetirizine) 10 mg capsule 10 mg PO DAILY PRN (Reason: ALLERGIES) nitrofurantoin macrocrystal 100 mg capsule 100 mg PO QID 14 Days Qty: 56 0RF Rx Instructions: must administer with a meal/food Discharge Orders: Discharge ED (Routine); Ordered 12/27/23 Ordered By: Ana María Marion Patient Instructions: Altered Mental Status (ED), Urinary Tract Infection in Older Adults (ED), Opioid Safety, Pain Management Coding Level of Care Code ED Packaging Assembler for Crys Davison
[2023-12-27 11:39] LABS: Lactic Sepsis W/Reflex 0.9 mmol/L (0.5-2.2)
[2023-12-27 11:42] LABS: Alanine Aminotransferase 23 U/L (0-33); Albumin Level 4.2 g/dL (3.5-5.2); Alkaline Phosphatase 93 U/L (35-105); Anion Gap 14.4 (5-19); Aspartate Amino Transferase 20 U/L (0-32); Blood Urea Nitrogen 12 mg/dL (8-23); C Reactive Protein 8.7 mg/L (0.0-4.9); Calcium 9.6 mg/dL (8.5-10.5); Carbon Dioxide 25 mmol/L (22-29); Chloride 102 mmol/L (98-107); Globulin 2.7 g/dL (1.3-4.6); Glomerular Filtration Rate 83.5 mL/min (90-130); Glucose 105 mg/dL (65-115); Osmolality Calculated 284 mOsm/kg (285-295); Potassium 4.4 mmol/L (3.5-5.1); Sodium 137 mmol/L (136-145); Total Bilirubin 0.5 mg/dL (0.15-1.2); Total Protein 6.9 g/dL (6.6-8.7)
[2023-12-27 11:44] LABS: Troponin(5th) Baseline 7 ng/L (0-10)
[2023-12-27 11:55] LABS: Acetaminophen < 5.0 ug/mL (10-30); Alcohol Level < 10 mg/dL (0-10)
--- NOTE | 2023-12-27 12:13 | ECG_ITS ---
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 Measurements Intervals [place] Rate: 65 P: 62 SC: 159 QRS: 39 QRSD: 93 T: 37 QT: 398 QTc: 415 Interpretive Statements SINUS RHYTHM INCOMPLETE RIGHT BUNDLE BRANCH BLOCK [90+ ms QRS DURATION, TERMINAL R IN V1/V2, 40+ ms S IN I/aVL/V4/V5/V6] NONSPECIFIC T-WAVE ABNORMALITY Compared to ECG 10/25/2022 05:41:43 Incomplete right bundle-branch block now present T-wave abnormality now present Sinus tachycardia no longer present Left-axis deviation no longer present Electronically Signed On 12-27-2023 18:03:20 HEAD SETTER by Gerson Carolina M.D. [id number]
[2023-12-27 12:16] LABS: Influenza A by IFA negative (Negative); Influenza B by IFA negative (Negative); SARS Covid-2 Antigen negative (Negative)
[2023-12-27 12:42] LABS: Amphetamines Screen Urine Negative (Negative); Barbiturates Screen Urine Positive (Negative); Benzodiazepines Screen Urine Negative (Negative); Cocaine Screen Urine Negative (Negative); Opiate Screen Urine Negative (Negative); PCP Screen Urine Negative (Negative); THC Screen Urine Negative (Negative)
[2023-12-27 13:29] LABS: Urine Appearance Clear (CLEAR); Urine Color Yellow (Yellow); pH Urine 6.5 (5-7)
[2023-12-27 13:30] LABS: Add Urine Culture? No; Bacteria Urine TRACE /hpf; Bilirubin Urine 1+ (Negative); Blood Urine Neg (Negative); Glucose Urine UA Norm (Normal); Ketones Urine 1+ (Negative); Leukocyte Esterase Urine Negative (Negative); Nitrate Urine Positive (Negative); Protein Urine 1+ (Negative); Squamous Epithelial Cell Urine RARE /hpf (0-5); Urobilinogen Urine 1 mg/dL (Negative); WBC Urine 0-4 /hpf (0-5)
--- NOTE | 2023-12-27 13:40 | CTR_ITS ---
PROCEDURE INFORMATION: Exam: CT Abdomen And Pelvis With Contrast Exam date and time: 12/27/2023 2:39 PM Age: 68 years old Clinical indication: Abdominal pain; Additional info: Abdominal pain, diffuse, altered mental status TECHNIQUE: Imaging protocol: Computed tomography of the abdomen and pelvis with contrast. Radiation optimization: All CT scans at this facility use at least one of these dose optimization techniques: automated exposure control; mA and/or kV adjustment per patient size (includes targeted exams where dose is matched to clinical indication); or iterative reconstruction. Contrast material: OMNI 350; Contrast volume: 100 ml; Contrast route: INTRAVENOUS (IV); COMPARISON: CR (CHEST, ) 12/27/2023 11:17 AM RADIATION DOSE METRICS: Total DLP (mGy-cm): 1152.76 FINDINGS: Lungs: Trace bilateral pleural effusions. Diaphragm: No evidence of diaphragmatic defect. Liver: No focal hepatic lesion. Gallbladder and bile ducts: Status post cholecystectomy. No evidence of intrahepatic or extrahepatic biliary dilatation. Pancreas: Unremarkable. Spleen: Unremarkable. Adrenal glands: Unremarkable. Kidneys and ureters: Markedly atrophic right kidney. No hydronephrosis or ureteral stone on the left. There is subtle parenchymal hypoattenuation noted of the left lower lobe, possibly artifactual though raising the question of early pyelonephritis in the proper clinical setting. Stomach and bowel: No evidence of bowel obstruction or perienteric inflammatory changes. Appendix: The appendix is not visualized, however there are no findings to suggest appendicitis. Intraperitoneal space: No evidence of free air or fluid collection. Vasculature: No aneurysmal dilatation or dissection of the abdominal aorta. The celiac trunk, SMA and JACINDA are grossly patent. No evidence of IVC thrombus. The portal vein, SMV and splenic veins are grossly patent. Lymph nodes: No adenopathy. Urinary bladder: Moderate diffuse bladder wall haziness with mild thickening. Otherwise grossly unremarkable. Reproductive: Grossly unremarkable. Bones/joints: No evidence of acute fracture or aggressive osseous lesion. Soft tissues: No evidence of fluid collection or hematoma in the superficial soft tissues. CT/CT abdomen pelvis w con* [id number] IMPRESSION: 1. Suspected cystitis. There is very mild patchy hypoenhancement of the left lower pole, possibly artifactual though raising the question of early pyelonephritis in the proper clinical setting. Correlation with urinalysis and laboratory findings is recommended.
[2023-12-27] MEDS: cefTRIAXone 1,000 MG in sodium chloride 0.9% (plus) 50 ML 100 MG IV (13:55)
[2023-12-27] MEDS: sodium chloride 0.9% 1,000 ML 999 ML IV (13:55)
[2023-12-27] MEDS: iohexol 350 mg/mL 500 mL Btl (per mL) IV (14:44)
== END 2023-12-27 19:43 | disposition home or self-care (01) ==
PROVIDERS: Emergency Provider Emergency Medicine
DX: N39.0 Urinary tract infection, site not specified (principal); F03.90 Unspecified dementia, unspecified severity, without behavioral disturbance, psychotic disturbance, mood disturbance, and anxiety; E86.0 Dehydration; Z11.52 Encounter for screening for COVID-19; E11.9 Type 2 diabetes mellitus without complications
CPT/HCPCS: 36415; 36600; 70450; 71045; 74177; 80051; 80053; 80306; 80307; 81001; 82330; 82805; 83605; 84484; 85025; 86140; 87040; 87426; 87804; 93005; 96365; 99285; J0696; J7030; Q9967